=== PATIENT | male | born 1990 | race Caucasian/White ===

== ENCOUNTER → 2023-04-07 | Outpatient (CLI) | payer BC ==
[~2023-04-07] MED LIST: CLINDAMYCIN HC300 MG PO; CLINDAMYCIN300 MG PO; MOTRIN800 MG PO
== END | disposition home or self-care (01) ==
LOC: CARD 00:29
PROVIDERS: ATTEND Nurse Practitioner Family
DX: R94.31 Abnormal electrocardiogram [ECG] [EKG] (principal); I10 Essential (primary) hypertension; E66.9 Obesity, unspecified